=== PATIENT | male | born 1960 | race Caucasian/White ===

== ENCOUNTER → 2017-01-31 | Outpatient (CLI) | payer BC ==
[~2017-01-31] VITALS: Ht 182.9 cm; Wt 95.3 kg
[~2017-01-31] MED LIST: BYSTOLIC10 MG PO; KLOR-CON M2020 MEQ PO; LOSARTAN-HCTZ1 EAC1 PO; METFORMIN HCL500 MG PO; [UNRECOGNIZED DRUG - OTHER] PO
[2017-01-31 09:20] LABS: POINT-OF-CARE METER ID UU13113694
== END | disposition home or self-care (01) ==
LOC: AMB 08:26
PROVIDERS: Internal Medicine
PROC: 0DBL8ZX Excision of Transverse Colon, Via Natural or Artificial Opening Endoscopic, Diagnostic (ICD-10-PCS; principal; 2017-01-31)
DX: Z12.11 Encounter for screening for malignant neoplasm of colon (principal); D12.3 Benign neoplasm of transverse colon; K64.8 Other hemorrhoids; I10 Essential (primary) hypertension; E11.9 Type 2 diabetes mellitus without complications; F17.210 Nicotine dependence, cigarettes, uncomplicated; Z79.84 Long term (current) use of oral hypoglycemic drugs; D69.6 Thrombocytopenia, unspecified
CPT/HCPCS: 82948; 88305; 93005; J2250; J3010

== ENCOUNTER 2017-04-17 18:41 | Inpatient (IN) | payer BC ==
[~2017-04-17] VITALS: Ht 182.9 cm; Wt 87.7 kg
[2017-04-17 19:36] LABS: HEMATOCRIT 26.2 % (38.0-50.0); MCH 35.3 PG (29.0-34.0); MCHC 36.6 G/DL (30.0-36.0); MCV 96.3 FL (86-99); PLATELET COUNT 104 K/uL (156-360); RBC DIS.WIDTH-CV 14.3 % (11.8-14.6); RBC DIS.WIDTH-SD 49.7 % (39-53); RED BLOOD COUNT 2.72 M/uL (4.00-5.50); WHITE BLOOD COUNT 13.7 K/uL (4.1-10.2)
[2017-04-17 19:45] LABS: CHLORIDE 89 mEq/L (99-109); POTASSIUM 3.3 mEq/L (3.7-5.4); SODIUM 120 mEq/L (136-147)
[2017-04-17 19:47] LABS: GLUCOSE 135 mg/dL (70-99)
[2017-04-17 19:48] LABS: ANION GAP 10 MEQ/L (2-14)
[2017-04-17 19:49] LABS: TOTAL BILIRUBIN 2.7 mg/dL (0.0-1.0)
[2017-04-17 19:50] LABS: ALKALINE PHOSPHATASE 147 IU/L (3-129)
[2017-04-17 19:51] LABS: GFR ESTIMATE (CALCULATED) 35 mL/min/
[2017-04-17 19:52] LABS: UREA NITROGEN (BUN) 52 mg/dL (9-23)
[2017-04-17 19:54] LABS: LIPASE 313 U/L (1.0-51.0)
[2017-04-17] MEDS ORDERED: CIPRO500 MG PO (21:54)
[2017-04-17 21:58] LABS: ADD MIUA? YES; BILIRUBIN NEGATIVE; BLOOD MODERATE; COLOR YELLOW ((YELLOW)); GLUCOSE (STRIP) NEGATIVE; KETONES NEGATIVE; LEUKOCYTES LARGE; NITRITE NEGATIVE; PROTEIN (STRIP) NEGATIVE; SPECIFIC GRAVITY 1.008 (1.000-1.030); UROBILINOGEN 0.2 MG/DL (0.2-1.0)
[2017-04-17 22:27] LABS: C-REACTIVE PROTEIN 119.5 MG/L (0-10); SAMPLE HEMOLYSIS CHECK 0; SAMPLE ICTERIC CHECK 0; SAMPLE LIPEMIA CHECK 0
[2017-04-17 22:33] LABS: ERTH.SED.RATE 82 MM/HR (0-20)
[2017-04-17 22:54] LABS: WHITE BLOOD CELLS 20-30 /HPF (0-5)
[2017-04-17 22:55] LABS: BACTERIA 2+ /HPF; EPITHELIAL CELLS 1+ /HPF; MUCUS 1+ /LPF; UCUL ADDED? YES
[2017-04-18 03:25] VITALS: BP 86/51
[2017-04-18 07:30] LABS: HEMATOCRIT 25.7 % (38.0-50.0); MCH 36.3 PG (29.0-34.0); MCV 98.1 FL (86-99); MEAN PLAT.VOLUME 11.3 uM^3 (9.0-12.4); PLATELET COUNT 99 K/uL (156-360); RBC DIS.WIDTH-CV 14.5 % (11.8-14.6); RBC DIS.WIDTH-SD 51.7 % (39-53); RED BLOOD COUNT 2.62 M/uL (4.00-5.50); WHITE BLOOD COUNT 8.5 K/uL (4.1-10.2)
[2017-04-18 08:10] LABS: ANION GAP 10 MEQ/L (2-14); POTASSIUM 3.7 MEQ/L (3.7-5.4); SAMPLE HEMOLYSIS CHECK 0; SAMPLE ICTERIC CHECK 0; SAMPLE LIPEMIA CHECK 0; SODIUM 126 MEQ/L (136-147); TOTAL BILIRUBIN 2.7 MG/DL (0.0-1.0)
[2017-04-18 08:15] LABS: ALKALINE PHOSPHATASE 138 IU/L (3-129); UREA NITROGEN (BUN) 45 mg/dL (9-23)
[2017-04-18 08:17] LABS: GFR ESTIMATE (CALCULATED) > 59 mL/min/; GLUCOSE 101 mg/dL (70-99)
[2017-04-18 08:18] LABS: CHLORIDE 97 MEQ/L (99-109)
[2017-04-18 09:22] VITALS: BP 104/59
[2017-04-18 11:30] VITALS: BP 107/57
[2017-04-18 11:43] LABS: INTER. NORMALIZED RATIO 1.4; PTT 35.1 (25-32)
[2017-04-18 14:00] VITALS: BP 100/56
[2017-04-18 16:26] LABS: POINT-OF-CARE METER ID UU14188577
[2017-04-18 20:46] VITALS: BP 83/50
[2017-04-18 21:00] VITALS: BP 105/78
[2017-04-18 22:42] LABS: POINT-OF-CARE METER ID UU14149397; POINT-OF-CARE USER ID AHSUCEG
[2017-04-19] VITALS (9 sets, daily range): BP systolic 119–160; BP diastolic 57–76
[2017-04-19 06:16] LABS: POINT-OF-CARE METER ID UU14149397
[2017-04-19 06:54] LABS: HEMATOCRIT 25.5 % (38.0-50.0); MCH 35.8 PG (29.0-34.0); MCHC 36.1 G/DL (30.0-36.0); MCV 99.2 FL (86-99); MEAN PLAT.VOLUME 11.2 uM^3 (9.0-12.4); PLATELET COUNT 116 K/uL (156-360); RBC DIS.WIDTH-CV 14.9 % (11.8-14.6); RBC DIS.WIDTH-SD 53.1 % (39-53); RED BLOOD COUNT 2.57 M/uL (4.00-5.50); WHITE BLOOD COUNT 7.2 K/uL (4.1-10.2)
[2017-04-19 06:57] LABS: INTER. NORMALIZED RATIO 1.3; PROTHROMBIN TIME 13.4 (9.2-11.2); PTT 36.4 (25-32)
[2017-04-19 07:15] LABS: ANION GAP 9 MEQ/L (2-14); CHLORIDE 95 MEQ/L (99-109); GFR ESTIMATE (CALCULATED) > 59 mL/min/; GLUCOSE 93 mg/dL (70-99); POTASSIUM 3.6 MEQ/L (3.7-5.4); SAMPLE HEMOLYSIS CHECK 0; SAMPLE ICTERIC CHECK 0; SAMPLE LIPEMIA CHECK 0; SODIUM 124 MEQ/L (136-147); UREA NITROGEN (BUN) 27 mg/dL (9-23)
[2017-04-19 08:53] LABS: ALKALINE PHOSPHATASE 147 IU/L (3-129); DIRECT BILIRUBIN 1.8 mg/dL (0.0-0.3); TOTAL BILIRUBIN 3.2 MG/DL (0.0-1.0)
[2017-04-19 08:56] LABS: MAGNESIUM 0.8 mg/dl (1.3-2.7)
[2017-04-19 15:44] LABS: MAGNESIUM 2.1 mg/dl (1.3-2.7)
[2017-04-20 05:19] VITALS: BP 141/73
[2017-04-20 07:33] LABS: ANION GAP 8 MEQ/L (2-14); CHLORIDE 101 MEQ/L (99-109); GFR ESTIMATE (CALCULATED) > 59 mL/min/; GLUCOSE 83 mg/dL (70-99); POTASSIUM 3.8 MEQ/L (3.7-5.4); SAMPLE HEMOLYSIS CHECK 0; SAMPLE ICTERIC CHECK 1; SAMPLE LIPEMIA CHECK 0; SODIUM 127 MEQ/L (136-147); UREA NITROGEN (BUN) 12 mg/dL (9-23)
[2017-04-20 07:34] LABS: MAGNESIUM 0.9 mg/dl (1.3-2.7)
[2017-04-20 07:44] VITALS: BP 135/65
[2017-04-20 13:39] VITALS: BP 120/65
[2017-04-20 16:12] VITALS: BP 137/69
[2017-04-20 20:30] VITALS: BP 130/63
[2017-04-20 23:59] VITALS: BP 125/60
[2017-04-21 04:14] VITALS: BP 133/69
[2017-04-21 07:02] LABS: HEMATOCRIT 23.4 % (38.0-50.0); MCH 35.3 PG (29.0-34.0); MCV 100.9 FL (86-99); MEAN PLAT.VOLUME 10.5 uM^3 (9.0-12.4); PLATELET COUNT 135 K/uL (156-360); RBC DIS.WIDTH-CV 15.1 % (11.8-14.6); RBC DIS.WIDTH-SD 55.3 % (39-53); RED BLOOD COUNT 2.32 M/uL (4.00-5.50); WHITE BLOOD COUNT 5.9 K/uL (4.1-10.2)
[2017-04-21 07:28] LABS: ANION GAP 7 MEQ/L (2-14); CHLORIDE 105 MEQ/L (99-109); GFR ESTIMATE (CALCULATED) > 59 mL/min/; GLUCOSE 87 mg/dL (70-99); SAMPLE HEMOLYSIS CHECK 0; SAMPLE ICTERIC CHECK 1; SAMPLE LIPEMIA CHECK 0; SODIUM 130 MEQ/L (136-147); UREA NITROGEN (BUN) 8 mg/dL (9-23)
[2017-04-21 07:29] LABS: ANION GAP 7 MEQ/L (2-14); CHLORIDE 105 MEQ/L (99-109); GFR ESTIMATE (CALCULATED) > 59 mL/min/; GLUCOSE 85 mg/dL (70-99); POTASSIUM 3.9 MEQ/L (3.7-5.4); SAMPLE HEMOLYSIS CHECK 0; SAMPLE ICTERIC CHECK 1; SAMPLE LIPEMIA CHECK 0; SODIUM 130 MEQ/L (136-147); UREA NITROGEN (BUN) 8 mg/dL (9-23)
[2017-04-21 08:58] VITALS: BP 135/65
[2017-04-21 12:02] VITALS: BP 151/78
[2017-04-21 15:58] VITALS: BP 100/59
[2017-04-21 19:55] VITALS: BP 133/62
[2017-04-21 21:41] LABS: POINT-OF-CARE METER ID UU14149397
[2017-04-21 23:53] VITALS: BP 116/53
[2017-04-22 04:04] VITALS: BP 136/60
[2017-04-22 07:41] LABS: ANION GAP 8 MEQ/L (2-14); CHLORIDE 104 MEQ/L (99-109); GFR ESTIMATE (CALCULATED) > 59 mL/min/; GLUCOSE 83 mg/dL (70-99); POTASSIUM 4.3 MEQ/L (3.7-5.4); SAMPLE HEMOLYSIS CHECK 0; SAMPLE ICTERIC CHECK 1; SAMPLE LIPEMIA CHECK 0; SODIUM 130 MEQ/L (136-147); UREA NITROGEN (BUN) 7 mg/dL (9-23)
[2017-04-22 07:45] LABS: MAGNESIUM 0.9 mg/dl (1.3-2.7)
[2017-04-22 08:34] VITALS: BP 142/69
[2017-04-22 12:01] VITALS: BP 143/61
[2017-04-22] MEDS ORDERED: KEFLEX500 MG PO (12:18)
[2017-04-22] MEDS ORDERED: NICOTINE PATCH1 EAC2 TD (12:19)
[2017-04-22] MEDS ORDERED: THERAGRAN1 TABLET PO (12:20)
[2017-04-22] MEDS ORDERED: AMILORIDE HCL5 MG PO (12:20)
[2017-04-22] MEDS ORDERED: Slow-Mag,Mag Delay PO (12:21)
[2017-04-22] MEDS ORDERED: FOLIC ACID1 MG PO (12:21)
[2017-04-22] MEDS ORDERED: Thiamine,Vitamin B1 PO (12:21)
[2017-04-22] MEDS ORDERED: AMLODIPINE BESYL5 MG PO (12:35)
[2017-04-22 13:45] LABS: UR CREATININE CONCENTRATION 89.2 MG/DL
== END 2017-04-22 15:06 | disposition home or self-care (01) | DRG 436 ==
LOC: EME 18:41 → EDOF 23:56 → 3EAST 23:56
PROVIDERS: Emergency Medicine; Hospitalist; Internal Medicine; Internal Medicine Nephrology; Physician Assistant; Radiology Diagnostic Radiology
PROC: 0FB13ZX Excision of Right Lobe Liver, Percutaneous Approach, Diagnostic (ICD-10-PCS; principal; 2017-04-18)
DX: C78.7 Secondary malignant neoplasm of liver and intrahepatic bile duct (principal); C34.32 Malignant neoplasm of lower lobe, left bronchus or lung; N17.9 Acute kidney failure, unspecified; E87.1 Hypo-osmolality and hyponatremia; T50.2X5A Adverse effect of carbonic-anhydrase inhibitors, benzothiadiazides and other diuretics, initial encounter; N39.0 Urinary tract infection, site not specified; R19.7 Diarrhea, unspecified; D64.9 Anemia, unspecified; E86.0 Dehydration; E83.42 Hypomagnesemia; M79.604 Pain in right leg; E11.9 Type 2 diabetes mellitus without complications; I10 Essential (primary) hypertension; K70.30 Alcoholic cirrhosis of liver without ascites; F10.20 Alcohol dependence, uncomplicated; J44.9 Chronic obstructive pulmonary disease, unspecified; K21.9 Gastro-esophageal reflux disease without esophagitis; G89.29 Other chronic pain; M54.2 Cervicalgia; M54.9 Dorsalgia, unspecified; K44.9 Diaphragmatic hernia without obstruction or gangrene; F17.210 Nicotine dependence, cigarettes, uncomplicated; Z79.84 Long term (current) use of oral hypoglycemic drugs
CPT/HCPCS: 36415; 70450; 70553; 72141; 72148; 74176; 77012; 80048; 80048 91; 80053; 80069; 80076; 81003; 82306; 82570; 82948; 83605; 83630; 83690; 83735; 83930; 83935; 84133; 84300; 84550; 85025; 85027; 85610; 85651; 85730; 86140; 86900; 86901; 87040; 87086; 87177; 87493; 88307; 88313; 99202; 99281; 99285; C9113; J0696; J1644; J1815; J3010; J3475; J7030; J7050

== ENCOUNTER → 2017-05-20 | Outpatient (CLI) | payer BC ==
[~2017-05-20] MED LIST changes: +AMILORIDE HCL5 MG PO; +AMLODIPINE BESYL5 MG PO; +CIPRO500 MG PO; +FOLIC ACID1 MG PO; +GLUCOPHAGE500 MG PO; +KEFLEX500 MG PO; +MIDAMOR5 MG PO; +NICOTINE PATCH1 EAC2 TD; +NORVASC5 MG PO; +Slow-Mag,Mag Delay PO; +THERAGRAN1 TABLET PO; +Thiamine,Vitamin B1 PO; +ULTRAM50 MG PO
[2017-05-20 14:04] LABS: TYPE OF FLUID PARACENTESIS
[2017-05-20 14:33] LABS: BODY FLUID RBC'S < 1000 /MM^3 (0-100); BODY FLUID WBC'S 239 /MM^3 (0-500)
[2017-05-20 14:43] LABS: BODY FLUID LDH 44 IU/L
[2017-05-20 14:48] LABS: BODY FLUID EOSINOPHILS 0 % (0-25); MONONUCLEAR WBC'S 25 %; POLYNUCLEAR WBC'S 75 % (0-25)
[2017-05-20 15:29] LABS: BODY FLUID PROTEIN < 3.0 G/DL
== END | disposition home or self-care (01) ==
LOC: RAD 13:19
PROVIDERS: Radiology Diagnostic Radiology
PROC: 0W9G3ZZ Drainage of Peritoneal Cavity, Percutaneous Approach (ICD-10-PCS; principal; 2017-05-20)
DX: R18.8 Other ascites (principal)
CPT/HCPCS: 49083; 82945; 83615 91; 83986 90; 84157; 87070; 87205; 88108; 89051

== ENCOUNTER 2017-07-17 14:26 | Inpatient (IN) | payer BC ==
[~2017-07-17] VITALS: Ht 182.9 cm; Wt 101.6 kg
[~2017-07-17 14:26] MED LIST changes: +GLUCOPHAGE XR,500 MG PO; -GLUCOPHAGE500 MG PO
[2017-07-17 16:34] LABS: HEMATOCRIT 29.7 % (38.0-50.0); MCH 34.8 PG (29.0-34.0); MCHC 34.3 G/DL (30.0-36.0); MCV 101.4 FL (86-99); MEAN PLAT.VOLUME 9.9 uM^3 (9.0-12.4); PLATELET COUNT 235 K/uL (156-360); RBC DIS.WIDTH-CV 15.6 % (11.8-14.6); RBC DIS.WIDTH-SD 57.4 % (39-53); RED BLOOD COUNT 2.93 M/uL (4.00-5.50)
[2017-07-17 16:45] LABS: CHLORIDE 100 mEq/L (99-109); POTASSIUM 4.9 mEq/L (3.7-5.4); SODIUM 126 mEq/L (136-147)
[2017-07-17 16:47] LABS: GLUCOSE 184 mg/dL (70-99)
[2017-07-17 16:48] LABS: ANION GAP 15 MEQ/L (2-14)
[2017-07-17 16:49] LABS: TOTAL BILIRUBIN 3.5 mg/dL (0.0-1.0)
[2017-07-17 16:51] LABS: ALKALINE PHOSPHATASE 207 IU/L (3-129); GFR ESTIMATE (CALCULATED) > 59 mL/min/
[2017-07-17 16:52] LABS: UREA NITROGEN (BUN) 13 mg/dL (9-23)
[2017-07-17] MEDS ORDERED: ALDACTONE25 MG PO (17:50)
[2017-07-17] MEDS ORDERED: SLOW-MAG,MAG DE64 MG PO (17:50)
[2017-07-17] MEDS ORDERED: FOLIC ACID1 MG PO (17:50)
[2017-07-17] MEDS ORDERED: NEXAVAR200 MG PO (17:50)
[2017-07-17] MEDS ORDERED: SUPER MULTIVIT1 EACH PO (17:50)
[2017-07-17 17:55] LABS: EOSINOPHIL (%) 0.1 % (0-5); IMMATURE GRANULOCYTE (%) 2.1 % (0.0-0.7); IMMATURE GRANULOCYTE COUNT 0.2 K/uL; INSTRUMENT ABS NEUTROPHIL CT 9.4 K/uL; LYMPHOCYTE COUNT 0.8 K/uL (1.0-2.8); MONOCYTE (%) 5.4 % (3-12); MONOCYTE COUNT 0.6 K/uL (0-0.8); NEUTROPHIL (%) 85.3 % (45-76); NEUTROPHIL COUNT 9.4 K/uL (1.8-6.4); PLAT.SUFFICIENCY ADEQUATE
[2017-07-17 18:56] LABS: ADD MIUA? YES; BILIRUBIN NEGATIVE; BLOOD NEGATIVE; COLOR AMBER ((YELLOW)); GLUCOSE (STRIP) NEGATIVE; KETONES NEGATIVE; LEUKOCYTES TRACE; NITRITE NEGATIVE; PROTEIN (STRIP) 30
[2017-07-17 19:03] LABS: BACTERIA RARE /HPF; EPITHELIAL CELLS RARE /HPF; HYALINE CASTS 30-40 /LPF; MUCUS TRACE /LPF; RED BLOOD CELLS 0-5 /HPF (0-5); UCUL ADDED? YES; WHITE BLOOD CELLS 20-30 /HPF (0-5)
[2017-07-17 21:15] VITALS: BP 100/58
[2017-07-17 21:30] LABS: CHLORIDE 101 mEq/L (99-109); POTASSIUM 4.7 mEq/L (3.7-5.4); SODIUM 126 mEq/L (136-147)
[2017-07-17 21:31] LABS: GLUCOSE 154 mg/dL (70-99)
[2017-07-17 21:33] LABS: ANION GAP 10 MEQ/L (2-14)
[2017-07-17 21:35] LABS: GFR ESTIMATE (CALCULATED) > 59 mL/min/
[2017-07-17 21:36] LABS: UREA NITROGEN (BUN) 10 mg/dL (9-23)
[2017-07-18] VITALS (8 sets, daily range): BP systolic 76–112; BP diastolic 48–65
[2017-07-18 05:47] LABS: HEMATOCRIT 23.8 % (38.0-50.0); MCHC 34.5 G/DL (30.0-36.0); MCV 101.7 FL (86-99); RBC DIS.WIDTH-CV 15.6 % (11.8-14.6); RBC DIS.WIDTH-SD 56.7 % (39-53); RED BLOOD COUNT 2.34 M/uL (4.00-5.50)
[2017-07-18 06:16] LABS: ANION GAP 8 MEQ/L (2-14); CHLORIDE 105 MEQ/L (99-109); GFR ESTIMATE (CALCULATED) > 59 mL/min/; GLUCOSE 121 mg/dL (70-99); POTASSIUM 4.1 MEQ/L (3.7-5.4); SAMPLE HEMOLYSIS CHECK 0; SAMPLE ICTERIC CHECK 0; SAMPLE LIPEMIA CHECK 0; SODIUM 129 MEQ/L (136-147); UREA NITROGEN (BUN) 10 mg/dL (9-23)
[2017-07-18 06:50] LABS: HEMATOLOGY COMMENT 1 SN; MEAN PLAT.VOLUME 10.1 uM^3 (9.0-12.4)
[2017-07-18 06:52] LABS: PLATELET COUNT 155 K/uL (156-360)
[2017-07-18 07:58] LABS: ABS NEUTROPHIL COUNT 5.5; EOSINOPHIL ABS CT 0; INSTRUMENT ABS NEUTROPHIL CT 4.3 K/uL
[2017-07-18 12:25] LABS: POINT-OF-CARE METER ID UU14174216
[2017-07-18 14:55] LABS: TYPE OF FLUID PARACENTESIS
[2017-07-18 15:44] LABS: BODY FLUID EOSINOPHILS 0 % (0-25); BODY FLUID RBC'S < 1000 /MM^3 (0-100); BODY FLUID WBC'S 105 /MM^3 (0-500); MONONUCLEAR WBC'S 70 %; POLYNUCLEAR WBC'S 30 % (0-25)
[2017-07-18 16:12] LABS: POINT-OF-CARE METER ID UU14174216
[2017-07-19] VITALS (11 sets, daily range): BP systolic 68–98; BP diastolic 42–68
[2017-07-19 02:44] LABS: BASE EXCESS -9.3 mEq/L (-3 to +3); BICARBONATE 13.9 mEq/L (22-26); CARBOXY HGB 1.7 % (0-5); METHEMOGLOBIN 1.4 % (0-1.5); PCO2 22 mm Hg (35-45); PO2 53 mm Hg (80-100); pH 7.41 (7.35-7.45)
[2017-07-19 02:45] LABS: COMMENTS - BLOOD GASES C+; DEVICE NCHH; FI02 100 %; O2 FLOW 45 L/MIN; SITE LB; TOTAL RESP RATE 40 resp/min
[2017-07-19 03:51] LABS: HEMATOCRIT 26.1 % (38.0-50.0); MCH 35.4 PG (29.0-34.0); MCHC 34.9 G/DL (30.0-36.0); MCV 101.6 FL (86-99); MEAN PLAT.VOLUME 10.2 uM^3 (9.0-12.4); PLATELET COUNT 158 K/uL (156-360); RBC DIS.WIDTH-SD 58.5 % (39-53); RED BLOOD COUNT 2.57 M/uL (4.00-5.50); WHITE BLOOD COUNT 6.4 K/uL (4.1-10.2)
[2017-07-19 04:04] LABS: CHLORIDE 107 mEq/L (99-109); POTASSIUM 4.3 mEq/L (3.7-5.4); SODIUM 132 mEq/L (136-147)
[2017-07-19 04:06] LABS: GLUCOSE 142 mg/dL (70-99)
[2017-07-19 04:07] LABS: ANION GAP 9 MEQ/L (2-14)
[2017-07-19 04:10] LABS: GFR ESTIMATE (CALCULATED) > 59 mL/min/
[2017-07-19 04:11] LABS: UREA NITROGEN (BUN) 10 mg/dL (9-23)
[2017-07-19 04:55] LABS: VANCOMYCIN, TROUGH 18.1 MCG/ML (10-20)
[2017-07-19 06:41] LABS: INTERNAL CONTROL VALID? YES
[2017-07-19 09:23] LABS: POINT-OF-CARE METER ID UU13113781
[2017-07-19 09:54] LABS: CARBOXY HGB 1.5 % (0-5); METHEMOGLOBIN 1.4 % (0-1.5); PCO2 22 mm Hg (35-45)
[2017-07-19 09:55] LABS: BICARBONATE 10.8 mEq/L (22-26); COMMENTS - BLOOD GASES A+C+; DEVICE NRBM/HHFNC; FI02 100 %; O2 FLOW 15 L/MIN; PO2 64 mm Hg (80-100); SITE LR; TOTAL RESP RATE 30 resp/min
[2017-07-19 12:12] LABS: POINT-OF-CARE METER ID UU13113803
[2017-07-19 12:37] LABS: ADD MIUA? NO; BILIRUBIN NEGATIVE; BLOOD NEGATIVE; COLOR YELLOW ((YELLOW)); GLUCOSE (STRIP) NEGATIVE; KETONES NEGATIVE; LEUKOCYTES NEGATIVE; NITRITE NEGATIVE; PROTEIN (STRIP) NEGATIVE; SPECIFIC GRAVITY 1.013 (1.000-1.030); UCUL ADDED? NO; UROBILINOGEN 0.2 MG/DL (0.2-1.0)
[2017-07-19 12:45] LABS: BICARBONATE 11.7 mEq/L (22-26); CARBOXY HGB 1.5 % (0-5); METHEMOGLOBIN 1.2 % (0-1.5)
[2017-07-19 12:46] LABS: PCO2 30 mm Hg (35-45); PO2 143 mm Hg (80-100)
[2017-07-19 12:47] LABS: COMMENTS - BLOOD GASES C+; DEVICE VENT; FI02 100 %; MECHANICAL RATE 14 resp/min; MODE AC; PEEP 10 CM/H20; SITE LR ALINE; TIDAL VOLUME 550 ML; TOTAL RESP RATE 29 resp/min
[2017-07-19 13:09] LABS: METH RESISTANT S AUREUS PCR NEGATIVE (NEGATIVE)
[2017-07-19 13:36] LABS: PROBE CHECK PASS; SPECIMEN PROCESSING CONTROL PASS
[2017-07-19 14:47] LABS: TROP-I INTERPRETATION NEGATIVE; TROPONIN-I < 0.01 ng/mL (0.0-0.30)
[2017-07-19 16:18] LABS: BASE EXCESS -12.4 mEq/L (-3 to +3); BICARBONATE 13.5 mEq/L (22-26); CARBOXY HGB 1.5 % (0-5); METHEMOGLOBIN 1.3 % (0-1.5); PCO2 30 mm Hg (35-45)
[2017-07-19 16:19] LABS: POINT-OF-CARE METER ID UU13113803
[2017-07-19 16:19] LABS: COMMENTS - BLOOD GASES C+; DEVICE VENT; FI02 80 %; MECHANICAL RATE 14 resp/min; MODE AC; PO2 81 mm Hg (80-100); SITE LR ALINE; TOTAL RESP RATE 39 resp/min; pH 7.26 (7.35-7.45)
[2017-07-19 16:20] LABS: PEEP 10 CM/H20; TIDAL VOLUME 550 ML
[2017-07-19 18:37] LABS: HEMATOCRIT 26.4 % (38.0-50.0); MCH 36.7 PG (29.0-34.0); MCHC 35.6 G/DL (30.0-36.0); MCV 103.1 FL (86-99); RBC DIS.WIDTH-CV 16.2 % (11.8-14.6); RBC DIS.WIDTH-SD 60.7 % (39-53); RED BLOOD COUNT 2.56 M/uL (4.00-5.50); WHITE BLOOD COUNT 14.1 K/uL (4.1-10.2)
[2017-07-19 18:55] LABS: ABS NEUTROPHIL COUNT 13.5; ANISOCYTOSIS 3+; BAND NEUTROPHILS 10.5 % (0-8.0); BURR CELLS 2+; EOSINOPHIL ABS CT 0; INSTRUMENT ABS NEUTROPHIL CT 12.7 K/uL; LYMPHOCYTES 1.7 % (15.0-45.0); MACROCYTES 3+; MEAN PLAT.VOLUME 10.3 uM^3 (9.0-12.4); METAMYELOCYTES 0.9 %; PLAT.SUFFICIENCY ADEQUATE; POIKILOCYTOSIS 3+; POLYCHROMASIA 1+; SEG.NEUTROPHILS 85.1 % (46.0-76.0)
[2017-07-19 18:57] LABS: PLATELET COUNT 297 K/uL (156-360)
[2017-07-19 22:00] LABS: POINT-OF-CARE METER ID UU13113803; POINT-OF-CARE USER ID LABHNS84
[2017-07-19 23:49] LABS: CHLORIDE 106 mEq/L (99-109); SODIUM 132 mEq/L (136-147)
[2017-07-19 23:52] LABS: ANION GAP 10 MEQ/L (2-14)
[2017-07-19 23:55] LABS: ALKALINE PHOSPHATASE 157 IU/L (3-129); GFR ESTIMATE (CALCULATED) > 59 mL/min/
[2017-07-19 23:56] LABS: UREA NITROGEN (BUN) 11 mg/dL (9-23)
[2017-07-20 00:25] LABS: GLUCOSE 333 mg/dL (70-99); POTASSIUM 3.3 mEq/L (3.7-5.4)
[2017-07-20 02:13] LABS: POINT-OF-CARE METER ID UU13113748; POINT-OF-CARE USER ID LABHNS84
[2017-07-20 05:39] LABS: HEMATOCRIT 25.3 % (38.0-50.0); MCH 34.5 PG (29.0-34.0); MCV 101.6 FL (86-99); MEAN PLAT.VOLUME 10.2 uM^3 (9.0-12.4); PLATELET COUNT 239 K/uL (156-360); RBC DIS.WIDTH-CV 16.1 % (11.8-14.6); RBC DIS.WIDTH-SD 58.9 % (39-53); RED BLOOD COUNT 2.49 M/uL (4.00-5.50); WHITE BLOOD COUNT 14.3 K/uL (4.1-10.2)
[2017-07-20 06:02] LABS: CHLORIDE 104 MEQ/L (99-109); GFR ESTIMATE (CALCULATED) > 59 mL/min/; GLUCOSE 275 mg/dL (70-99); POTASSIUM 3.2 MEQ/L (3.7-5.4); SODIUM 133 MEQ/L (136-147); UREA NITROGEN (BUN) 12 mg/dL (9-23)
[2017-07-20 06:05] LABS: HEMATOLOGY COMMENT 1 SN
[2017-07-20 06:11] LABS: ALKALINE PHOSPHATASE 139 IU/L (3-129); ANION GAP 9 MEQ/L (2-14); SAMPLE HEMOLYSIS CHECK 0; SAMPLE ICTERIC CHECK 0; SAMPLE LIPEMIA CHECK 0
[2017-07-20 06:21] LABS: ABS NEUTROPHIL COUNT 13.9; ANISOCYTOSIS 2+; BAND NEUTROPHILS 3.7 % (0-8.0); BURR CELLS 1+; EOSINOPHIL ABS CT 0; INSTRUMENT ABS NEUTROPHIL CT 11.9 K/uL; MACROCYTES 2+; PLAT.SUFFICIENCY ADEQUATE; POIKILOCYTOSIS 3+; SEG.NEUTROPHILS 93.5 % (46.0-76.0)
[2017-07-20 11:26] LABS: POINT-OF-CARE METER ID UU14162636
[2017-07-20 14:30] LABS: POINT-OF-CARE METER ID UU14162636
[2017-07-20 17:40] LABS: POINT-OF-CARE METER ID UU13113748
[2017-07-20 22:13] LABS: POINT-OF-CARE METER ID UU13113748; POINT-OF-CARE USER ID LABHNS84
[2017-07-20 23:17] LABS: HEMATOCRIT 23.3 % (38.0-50.0); MCV 97.9 FL (86-99)
[2017-07-20 23:21] LABS: INTER. NORMALIZED RATIO 1.4; PROTHROMBIN TIME 15.8 SEC (10.2-12.9)
[2017-07-20 23:24] LABS: PTT 38.2 SEC (25-37)
[2017-07-20 23:27] LABS: CHLORIDE 101 mEq/L (99-109); POTASSIUM 3.3 mEq/L (3.7-5.4); SODIUM 133 mEq/L (136-147)
[2017-07-20 23:28] LABS: MAGNESIUM 1.8 mg/dL (1.3-2.7)
[2017-07-20 23:29] LABS: GLUCOSE 211 mg/dL (70-99)
[2017-07-20 23:30] LABS: ANION GAP 9 MEQ/L (2-14)
[2017-07-20 23:33] LABS: GFR ESTIMATE (CALCULATED) > 59 mL/min/
[2017-07-20 23:34] LABS: UREA NITROGEN (BUN) 12 mg/dL (9-23)
[2017-07-21 02:16] LABS: POINT-OF-CARE METER ID UU14208751; POINT-OF-CARE USER ID LABHNS84
[2017-07-21 05:37] LABS: ALKALINE PHOSPHATASE 157 IU/L (3-129); ANION GAP 9 MEQ/L (2-14); CHLORIDE 102 MEQ/L (99-109); GFR ESTIMATE (CALCULATED) > 59 mL/min/; GLUCOSE 188 mg/dL (70-99); POTASSIUM 3.5 MEQ/L (3.7-5.4); SAMPLE HEMOLYSIS CHECK 0; SAMPLE ICTERIC CHECK 0; SAMPLE LIPEMIA CHECK 0; SODIUM 136 MEQ/L (136-147); TOTAL BILIRUBIN 1.7 MG/DL (0.0-1.0); UREA NITROGEN (BUN) 13 mg/dL (9-23)
[2017-07-21 05:40] LABS: ABS NEUTROPHIL COUNT 9.6; ANISOCYTOSIS 2+; ATYPICAL LYMPHOCYTE 0.9 %; BAND NEUTROPHILS 5.2 % (0-8.0); BURR CELLS 2+; EOSINOPHIL ABS CT 0; HEMATOCRIT 21.8 % (38.0-50.0); LYMPHOCYTES 3.5 % (15.0-45.0); MCH 36.5 PG (29.0-34.0); MCHC 36.7 G/DL (30.0-36.0); MCV 99.5 FL (86-99); MEAN PLAT.VOLUME 10.5 uM^3 (9.0-12.4); NRBC (%) 0.2 /100 WBC (0-0); NUCLEATED RBC'S 0.9; PLAT.SUFFICIENCY ADEQUATE; PLATELET COUNT 154 K/uL (156-360); RBC DIS.WIDTH-CV 16.1 % (11.8-14.6); RBC DIS.WIDTH-SD 56.9 % (39-53); RED BLOOD COUNT 2.19 M/uL (4.00-5.50); SEG.NEUTROPHILS 89.5 % (46.0-76.0); WHITE BLOOD COUNT 10.1 K/uL (4.1-10.2)
[2017-07-21 05:41] LABS: BASE EXCESS 2.7 mEq/L (-3 to +3); BICARBONATE 25.1 mEq/L (22-26); CARBOXY HGB 1.7 % (0-5); METHEMOGLOBIN 1.4 % (0-1.5); PCO2 30 mm Hg (35-45); PO2 50 mm Hg (80-100); pH 7.53 (7.35-7.45)
[2017-07-21 05:42] LABS: COMMENTS - BLOOD GASES C+; DEVICE VENT; FI02 50 %; MECHANICAL RATE 14 resp/min; MODE ACVC; PEEP 10 CM/H20; SITE A-LINE; TIDAL VOLUME 550 ML; TOTAL RESP RATE 30 resp/min
[2017-07-21 07:47] LABS: MAGNESIUM 1.9 mg/dl (1.3-2.7)
[2017-07-21 08:00] VITALS: BP 106/71
[2017-07-21 08:37] LABS: BASE EXCESS 2.6 mEq/L (-3 to +3); BICARBONATE 25.9 mEq/L (22-26); CARBOXY HGB 1.8 % (0-5); COMMENTS - BLOOD GASES A+C+; DEVICE 980; FI02 60 %; MECHANICAL RATE 14 resp/min; METHEMOGLOBIN 1.4 % (0-1.5); MODE AC VC; PCO2 34 mm Hg (35-45); PEEP 10 CM/H20; PO2 59 mm Hg (80-100); SITE ALINE; TIDAL VOLUME 550 ML; TOTAL RESP RATE 31 resp/min; pH 7.49 (7.35-7.45)
[2017-07-21 10:27] LABS: POINT-OF-CARE METER ID UU13113803
[2017-07-21 14:00] VITALS: BP 87/55
[2017-07-21 14:34] LABS: POINT-OF-CARE METER ID UU13113803
[2017-07-21 18:02] LABS: POINT-OF-CARE METER ID UU13113803
[2017-07-21 22:21] LABS: POINT-OF-CARE METER ID UU14208751
[2017-07-22] VITALS: BP 106/65
[2017-07-22 02:17] LABS: POINT-OF-CARE METER ID UU14208751
[2017-07-22 05:00] VITALS: BP 106/65
[2017-07-22 05:32] LABS: POINT-OF-CARE METER ID UU14208751
[2017-07-22 08:25] LABS: HEMATOCRIT 22.6 % (38.0-50.0); MCH 34.9 PG (29.0-34.0); MCHC 33.6 G/DL (30.0-36.0); MEAN PLAT.VOLUME 10.2 uM^3 (9.0-12.4); PLATELET COUNT 140 K/uL (156-360); RBC DIS.WIDTH-CV 17.1 % (11.8-14.6); RBC DIS.WIDTH-SD 62.9 % (39-53); RED BLOOD COUNT 2.18 M/uL (4.00-5.50); WHITE BLOOD COUNT 13.2 K/uL (4.1-10.2)
[2017-07-22 08:26] LABS: MCV 103.7 FL (86-99)
[2017-07-22 08:40] LABS: ABS NEUTROPHIL COUNT 12.2; ANISOCYTOSIS 1+; BAND NEUTROPHILS 4.5 % (0-8.0); BURR CELLS 1+; EOSINOPHIL ABS CT 0; INSTRUMENT ABS NEUTROPHIL CT 10.8 K/uL; LYMPHOCYTES 3.6 % (15.0-45.0); MACROCYTES 1+; METAMYELOCYTES 1.8 %; MYELOCYTES 0.9 %; PLAT.SUFFICIENCY DECREASED; POIKILOCYTOSIS 2+; POLYCHROMASIA 1+; SEG.NEUTROPHILS 88.3 % (46.0-76.0)
[2017-07-22 08:45] LABS: ANION GAP 11 MEQ/L (2-14); CHLORIDE 104 MEQ/L (99-109); GFR ESTIMATE (CALCULATED) > 59 mL/min/; GLUCOSE 128 mg/dL (70-99); POTASSIUM 4.1 MEQ/L (3.7-5.4); SAMPLE HEMOLYSIS CHECK 0; SAMPLE ICTERIC CHECK 0; SAMPLE LIPEMIA CHECK 0; SODIUM 139 MEQ/L (136-147); UREA NITROGEN (BUN) 11 mg/dL (9-23)
[2017-07-22 08:46] LABS: MAGNESIUM 1.5 mg/dl (1.3-2.7)
[2017-07-22 11:38] LABS: POINT-OF-CARE METER ID UU14162636
[2017-07-22 12:00] VITALS: BP 90/55
[2017-07-22 14:14] LABS: POINT-OF-CARE METER ID UU14162636
== END 2017-07-22 21:25 | DRG 871 ==
LOC: EME 14:26 → EDOF 19:40 → 4EAST 19:40 → ENRESERV 19:43 → 4EAST 21:06 → ENRESERV 07-19 10:06 → 4WEST 07-19 10:49
PROVIDERS: Emergency Medicine; Hospitalist; Internal Medicine; Internal Medicine Critical Care Medicine; Radiology Diagnostic Radiology; Specialist
DX: A41.9 Sepsis, unspecified organism (principal); R65.21 Severe sepsis with septic shock; E87.4 Mixed disorder of acid-base balance; N17.9 Acute kidney failure, unspecified; Z51.5 Encounter for palliative care; E11.52 Type 2 diabetes mellitus with diabetic peripheral angiopathy with gangrene; E11.69 Type 2 diabetes mellitus with other specified complication; L02.611 Cutaneous abscess of right foot; L03.115 Cellulitis of right lower limb; J96.01 Acute respiratory failure with hypoxia; J18.9 Pneumonia, unspecified organism; N39.0 Urinary tract infection, site not specified; B95.61 Methicillin susceptible Staphylococcus aureus infection as the cause of diseases classified elsewhere; E11.621 Type 2 diabetes mellitus with foot ulcer; L97.511 Non-pressure chronic ulcer of other part of right foot limited to breakdown of skin; L97.521 Non-pressure chronic ulcer of other part of left foot limited to breakdown of skin; E87.1 Hypo-osmolality and hyponatremia; C22.0 Liver cell carcinoma; K70.31 Alcoholic cirrhosis of liver with ascites; F10.20 Alcohol dependence, uncomplicated; I10 Essential (primary) hypertension; D64.9 Anemia, unspecified; E11.42 Type 2 diabetes mellitus with diabetic polyneuropathy; M00.9 Pyogenic arthritis, unspecified; F17.210 Nicotine dependence, cigarettes, uncomplicated; S51.802A Unspecified open wound of left forearm, initial encounter; S81.001A Unspecified open wound, right knee, initial encounter; W19.XXXA Unspecified fall, initial encounter; Z66 Do not resuscitate; Z79.4 Long term (current) use of insulin
CPT/HCPCS: 36600; 36620; 49083; 71010; 71020; 71275; 73630; 74177; 80048; 80048 91; 80053; 80202; 81003; 82330; 82565; 82803; 82948; 83605; 83735; 83880; 84100; 84484; 84520; 85014; 85018; 85025; 85027; 85384; 85610; 85730; 87040; 87070; 87075; 87076; 87077; 87086; 87147; 87186; 87205; 87449; 87641; 89051; 93970; 94002; 94003; 94640; 94640 76; 94760; 94799; 99202; 99281; 99285; C1751; J0610; J0692; J1650; J1815; J1940; J1956; J2250; J2270; J2704; J2930; J3010; J3370; J3475; J3480; J7030; J7040; J7050; J7070; J7120; P9047; S0020; S0028; S0032